=== PATIENT | female | born 1960 | race Caucasian/White ===

== ENCOUNTER 2025-07-31 14:57 | Outpatient (CLI) | payer MEDICARE, MEDICAID, SELFPAY ==
--- NOTE | ~2025-07-31 | CT_ITS ---
CT lung screening INDICATION: Tobacco use. Screening COMPARISON: None. TECHNIQUE: CT examination of the entire thorax without contrast was performed using low dose technique. Thin section axial, sagittal and coronal images were included to increase sensitivity for small lung nodules. FINDINGS: PULMONARY NODULES: No suspicious noncalcified pulmonary nodule. OTHER PULMONARY FINDINGS: No significant nonnodular pleural or parenchymal abnormality is noted. No emphysematous changes are present. Enlarged distal paraesophageal lymph node measures 1.5 x 0.9 cm. There is a small hiatal hernia.. Normal heart size. UPPER ABDOMEN AND PERIPHERAL SOFT TISSUE: Limited views of the upper abdomen and peripheral soft tissue demonstrated no abnormalities. OSSEOUS STRUCTURES: Bone window shows no aggressive blastic or lytic lesions. IMPRESSION: 1. Lung-RADS category 1: No nodules or definitely benign nodules. Recommendations: 1 or 2: Annual screening with low-dose CT in 12 months. 2. No emphysematous changes are present. 3. Enlarged paraesophageal lymph node. Metastases cannot be excluded. Clinical correlation is recommended. All CT scans at this facility are performed using low dose modulation techniques as appropriate to perform exam including the following: automated exposure control; use of iterative reconstruction technique; adjustment of the mA and/or kV according to patient size (this includes techniques or standardized protocols for targeted exams where dose is matched to indication/reason for exam). Reviewed, dictated and finalized at location S. EY ASSOCIATE IMPRESSION: 1. Lung-RADS category 1: No nodules or definitely benign nodules. Recommendations: 1 or 2: Annual screening with low-dose CT in 12 months. 2. No emphysematous changes are present. 3. Enlarged paraesophageal lymph node. Metastases cannot be excluded. Clinical correlation is recommended. All CT scans at this facility are performed using low dose modulation techniqu es as appropriate to perform exam including the following: automated exposure c ontrol; use of iterative reconstruction technique; adjustment of the mA and/or kV according to patient size (this includes techniques or standardized protocol s for targeted exams where dose is matched to indication/reason for exam).
--- OUTSIDE RECORDS SUMMARY | 2025-07-31 15:07 | XMS_ITS | Data Portability ---
Author Organization [facility] Address [address] [place] [address] Care Team Providers Care Patient Registration Representative Name Role Phone MIRTA HAYWARD Nutrition Instructor JOSEPH MCCRAY Nutrition Instructor Assessment Encounter Date Assessment Date Assessment LastModified by Organization Details LastModified Time 07/09/2025 07/09/[address] overdue, last medication refill oajao Not available 07/09/2025 13:41:31 Plan of Treatment Reminders Order Date Submit Date Provider Last Modified By Organization Details Last Modified Time Details Appointments ANY 15 2024 10:30A M Unassigned Not available Not available Not available ANY 15 2025 11:30A M Toan Durbin MD Not available Not available Not available Lab CBC 2024 [facility], [address], [place], [address], 07/10/2025 13:13:17 CMP, serum or plasm a 2024 025 [facility], [address], [place], [address], 07/10/2025 13:13:15 urina lysis macro (dips tick) panel , urine 2024 025 [facility], [address], [place], [address], 07/10/2025 13:13:16 nonin vasiv e color ectal cance r DNA + occul t blood scree jamee, QL, stool 2024 [facility], [address], [address], [place], [address], 07/31/2025 14:27:12 HbA1c (hemo globi n A1c), blood 2024 [facility], [address], [place], [address], 07/10/2025 13:13:16 lipid panel , serum 2024 [facility], [address], [place], [address], 07/10/2025 13:13:14 micro album in/cr eatin ine, mass ratio , urine 2024 [facility], [address], [place], [address], 07/10/2025 13:13:13 urina lysis , dipst ick 2023 024 [facility], [address], [place], [address], 11/29/2024 09:55:36 CBC w/ auto diff 2023 024 [facility], [address], [place], [address], 11/29/2024 09:55:37 CMP, serum or plasm a 2023 [facility], [address], [place], [address], 11/29/2024 09:55:37 vitam in D, 25-hy droxy , total , serum 2023 024 [facility], [address], [place], [address], 11/29/2024 09:55:36 HbA1c (hemo globi n A1c), blood 2023 [facility]24 [facility], [address], [place], [address], 11/29/2024 09:55:36 lipid panel , serum 2023 024 [facility], [address], [place], [address], 11/29/2024 09:55:36 micro album in/cr eatin ine, mass ratio , urine 2023 [facility], [address], [place], [address], 11/29/2024 09:55:36 basic metab olic 1998 panel , serum or plasm a 2021 [facility], [address], [place], [address], 07/19/2023 17:57:03 CBC 2021 022 [facility], [address], [place], [address], 07/19/2023 17:57:03 TSH, ultra -sens itive , serum 2021 [facility], [address], [address], [place], [address], 07/19/2023 17:57:03 urina lysis , dipst ick 2021 [facility], [address], [address], [place], [address], 07/19/2023 17:57:03 nonin vasiv e color ectal cance r DNA + occul t blood mikhail mancuso, QL, stool 2021 [facility], [address], [address], [place], [address], 09/06/2023 08:59:39 lipid panel , serum 2021 [facility], [address], [place], [address], 07/19/2023 17:57:02 Referral ortho pedic surge on refer ral 2024 025 [facility], [address], [place], [address], 07/23/2025 04:30:[address] refer ral 2024 025 [facility] (Ob), [address] [place], [address], 07/14/2025 15:20:57 diabe tic ophth almol ogy refer ral 2024 025 [facility], [address] , [place], [address], 07/09/2025 15:19:30 diabe tic ophth almol ogy refer ral [facility]23 [facility] [address] , [place], [address], 01/10/2025 18:52:17 Procedures None recor ded. Surgeries None recor ded. Imaging MAMMO , mikhail mancuso, digit al, bilat eral [address] [facility] ([facility]), [address] [place], [address], 07/09/2025 13:25:06 XR, knee - OA of both knees 2024 025 [facility] (Imaging), [address], [place], [address], 07/09/2025 13:50:06 LDCT, chest , for lung cance r scree jamee - Share d decis on stephen stewart was done 2024 [facility] (Imaging), [address], [place], [address], 07/29/2025 14:35:29 MAMMO , scree jamee, digit al, bilat eral [address] [facility] ([facility]), [address] [place], [address], 10/17/2024 13:47:47 DEXA 2023 024 [facility] ([facility]), [address] [place], [address], 05/17/2024 12:12:48 LDCT, chest , for lung cance r scree jamee 2023 024 [facility] ([facility]), [address] [place], [address], 05/24/2024 17:57:02 LDCT, chest , for lung cance r scree jamee - Discu ssed 2021 022 [facility] ([facility]), [address] [place], [address], 09/30/2022 11:58:56 MAMMO , scree jamee, bilat eral 2021 022 [facility] ([facility]), [address] [place], [address], 01/22/2023 13:03:20 Medication Orders atorv astat in 10 mg table t 2024 [facility], [address] [place] [address], [address], 07/09/2025 13:25:05 atorv astat in 10 mg table t 2021 [facility], [address] [place] [address], [address], 09/06/2022 12:43:36 lisin opril 20 mg-hy droch lorot hiazi de 25 mg table t 2021 [facility], [address] [place] [address], [address], 09/06/2022 12:43:39 Patient TargetsNo targets recorded. Patient Instructions Encounter Date Encounter Id Patient Instructions Last Modified By Organization Details Last Modified Time 09/06/2022 [id number] knee arthritis: care instructions oajao Not available 09/06/2022 12:20:58 Quitting Tobacco : Care Instructions oajao Not available 09/06/2022 12:24:20 A healthy lifestyle: care instructions oajao Not available 09/06/2022 12:14:38 leg and ankle edema: care instructions oajao Not available 09/06/2022 12:28:08 sleep apnea: car e instructions oajao Not available 09/06/2022 12:14:10 learning about breast cancer screening oajao Not available 09/06/2022 12:27:05 type 2 diabetes: care instructions oajao Not available 09/06/2022 12:15:34 body mass index: care instructions oajao Not available 09/06/2022 12:14:32 learning about healthy weight oajao Not available 09/06/2022 12:14:32 Labs (old and ne w orders) [facility] LDCT [facility] [place] Tobacco Quitline Follow up in 5 months and PRN oajao Not available 09/06/2022 12:26:10 03/24/2023 [id number] Labs as previous ly ordered Note from the [employer] as previously ordered Stop smoking [employer] for Pap Follow up in 6 months oajao Not available 03/24/2023 09:31:45 03/13/2024 [id number] mammogram: about this test oajao Not available 03/13/2024 13:08:51 Quitting Tobacco : Care Instructions oajao Not available 03/13/2024 13:12:02 A healthy lifestyle: care instructions oajao Not available 03/13/2024 13:50:36 learning about healthy weight oajao Not available 03/13/2024 13:50:29 body mass index: care instructions oajao Not available 03/13/2024 13:50:29 learning about healthy weight oajao Not available 03/13/2024 13:50:29 Labs LDCT [facility] as ordered DEXA Stop smoking e cig Follow up in 5 months and PRN oajao Not available 03/13/2024 13:57:55 12/24/2024 [id number] MMG as previousl y ordered Stop smoking [employer] OTC [employer] Schedule a routine visit in 6 weeks oajao Not available 12/24/2024 14:56:05 07/09/2025 [id number] mammogram: about this test oajao Not available 07/09/2025 13:25:06 high blood pressure: care instructions oajao Not available 07/09/2025 13:42:08 learning about h igh blood pressure oajao Not available 07/09/2025 13:42:08 Labs MMG Xray LD CT [employer] Orthopedics Follow up in 4 months oajao Not available 07/09/2025 13:23:46 Reason for Referral Diabetic Ophthalmology Refer ral for Type 2 diabetes mellitus without complication Referring Physician: Toan Durbin, Internal Medicine, Encounter Date: 03/13/2024 Power Lineman Referral for Sc reening for malignant neoplasm of cervix Referring Physician: Toan Durbin, Internal Medicine, Encounter Date: 07/09/2025 Diabetic Ophthalmology Refer ral for Type 2 diabetes mellitus without complication Referring Physician: Toan Durbin Internal Medicine, Encounter Date: 07/09/2025 Orthopedic Surgeon Referral for Primary gonarthrosis, bilateral OA of the knees Referring Physician: Toan Durbin, Internal Medicine, Encounter Date: 07/09/2025 Results Created Date Observation Date Name Description Value Unit Range Abnormal Flag Note LastModifiedBy Organization Detail LastModifiedTime 09/06/2009/06/2023 COLOG UARD cologuard result CANCEL LED - ORDER D not applic able Not Available [facility] [address], [place], [address], 09/06/2023 08:59:39 07/09/2007/10/2025 ALBUM IN/CR EAT RATIO , RANDO M UR creatinine, urine 199.1 mg/dL notest ab. Not Available [facility] ([facility]) [address], [place], [address], 07/10/2025 13:13:13 07/09/2007/10/2025 ALBUM IN/CR EAT RATIO , RANDO M UR albumin, urine 14.3 ug/mL notest ab. Not Available [facility] ([facility]) [address], [place], [address], 07/10/2025 13:13:13 07/09/2007/10/2025 ALBUM IN/CR EAT RATIO , RANDO M UR alb/creat ratio 7 mg/g_ creat 0-29 Trini l: 0 - 29 Moder ately incre ased: 30 - 300 Sever liz incre ased: >300 Not Available [facility] ([facility]) [address], [place], [address], 07/10/2025 13:13:13 07/09/2007/10/2025 LIPID PANEL cholesterol, total 155 mg/dL 100-19 9 Not Available [facility] ([facility]) [address] [place], [address], 07/10/2025 13:13:14 07/09/20 07/10/2025 LIPID PANEL triglyceride s 154 mg/dL 0-149 above high normal Not Available [facility] ([facility]) [address] [place], [address], 07/10/2025 13:13:14 07/09/20 25 07/10/2025 LIPID PANEL HDL cholesterol 39 mg/dL >39 below low normal Not Available [facility] ([facility]) [address], [place], [address], 07/10/2025 13:13:14 07/09/20 25 07/10/2025 LIPID PANEL VLDL cholesterol danielle 27 mg/dL 5-40 Not Available [facility] ([facility]) [address] [place], [address], 07/10/2025 13:13:14 07/09/20 25 07/10/2025 LIPID PANEL LDL chol calc ([facility]) 89 mg/dL 0-99 Not Available [facility] ([facility]) [address] [place], [address], 07/10/2025 13:13:14 07/09/20 25 07/10/2025 MICRO SCOPI C EXAMI NATIO N WBC 11-30 /hpf 0-5 abnormal Not Available [facility] ([facility]) [address] [place], [address], 07/10/2025 13:13:14 07/09/2007/10/2025 MICRO SCOPI C EXAMI NATIO N RBC 3-10 /hpf 0-2 abnormal Not Available [facility] ([facility]) [address] [place], [address], 07/10/2025 13:13:14 07/09/20 25 07/10/2025 MICRO SCOPI C EXAMI NATIO N epithelial cells (non renal) 0-10 /hpf 0-10 Not Available [facility] ([facility]) [address] [place], [address], 07/10/2025 13:13:14 07/09/2007/10/2025 MICRO SCOPI C EXAMI NATIO N casts None seen /lpf nonese en Not Available [facility] ([facility]) [address], [place], [address], 07/10/2025 13:13:14 07/09/2007/10/2025 MICRO SCOPI C EXAMI NATIO N bacteria None seen nonese en/few Not Available [facility] ([facility]) [address], [place], [address], 07/10/2025 13:13:14 07/09/2007/10/2025 CMP14 +EGFR glucose 122 mg/dL 70-99 above high normal Not Available [facility] ([facility]) [address], [place], [address], 07/10/2025 13:13:15 07/09/2007/10/2025 CMP14 +EGFR BUN 12 mg/dL 8-27 Not Available [facility] ([facility]) [address], [place], [address], 07/10/2025 13:13:15 07/09/2007/10/2025 CMP14 +EGFR creatinine 0.76 mg/dL 0.57-1 .00 Not Available [facility] ([facility]) [address], [place], [address], 07/10/2025 13:13:15 07/09/2007/10/2025 CMP14 +EGFR eGFR 86 mL/mi n/1.7 3 >59 Not Available [facility] ([facility]) [address], [place], [address], 07/10/2025 13:13:15 07/09/2007/10/2025 CMP14 +EGFR BUN/creatini ne ratio 16 12-28 Not Available [facility] ([facility]) [address], [place], [address], 07/10/2025 13:13:15 07/09/2007/10/2025 CMP14 +EGFR sodium 140 mmol/ L 134-14 4 Not Available [facility] ([facility]) [address], [place], [address], 07/10/2025 13:13:15 07/09/2007/10/2025 CMP14 +EGFR potassium 3.8 mmol/ L 3.5-5. 2 Not Available [facility] ([facility]) [address], [place], [address], 07/10/2025 13:13:15 07/09/2007/10/2025 CMP14 +EGFR chloride 102 mmol/ L 96-106 Not Available [facility] ([facility]) [address], [place], [address], 07/10/2025 13:13:15 07/09/2007/10/2025 CMP14 +EGFR carbon dioxide, total 25 mmol/ L 20-29 Not Available [facility] ([facility]) [address], [place], [address], 07/10/2025 13:13:15 07/09/2007/10/2025 CMP14 +EGFR calcium 9.2 mg/dL 8.7-10 .3 Not Available [facility] ([facility]) [address] [place], [address], 07/10/2025 13:13:15 07/09/2007/10/2025 CMP14 +EGFR protein, total 7.2 g/dL 6.0-8. 5 Not Available [facility] ([facility]) [address] [facility] [address], [place], [address], 07/10/2025 13:13:15 07/09/2007/10/2025 CMP14 +EGFR albumin 3.9 g/dL 3.9-4. 9 Not Available [facility] ([facility]) [address] [place], [address], 07/10/2025 13:13:15 07/09/2007/10/2025 CMP14 +EGFR globulin, total 3.3 g/dL 1.5-4. 5 Not Available [facility] ([facility]) [address] [place], [address], 07/10/2025 13:13:15 07/09/2007/10/2025 CMP14 +EGFR bilirubin, total 0.7 mg/dL 0.0-1. 2 Not Available [facility] ([facility]) [address] [place], [address], 07/10/2025 13:13:15 07/09/2007/10/2025 CMP14 +EGFR alkaline phosphatase 95 IU/L 49-135 Not Available [facility]) [address] [place], [address], 07/10/2025 13:13:15 07/09/2007/10/2025 CMP14 +EGFR AST (SGOT) 24 IU/L 0-40 Not Available [facility] ([facility]) [address] [place], [address], 07/10/2025 13:13:15 07/09/2007/10/2025 CMP14 +EGFR ALT (SGPT) 25 IU/L 0-32 Not Available [facility] ([facility]) [address] [place], [address], 07/10/2025 13:13:15 07/09/2007/10/2025 HEMOG LOBIN A1C hemoglobin A1C 6.4 % 4.8-5. 6 above high normal Predi abete s: 5.7 - 6.4 Diabe keo: >6.4 Glyce omer contr ol for adult s with diabe keo: <7.0 Not Available [facility] ([facility]) [address] [facility] [address], [place], [address], 07/10/2025 13:13:15 07/09/2007/10/2025 URINA LYSIS , ROUTI NE specific gravity 1.023 1.005- 1.030 Not Available [facility] ([facility]) [address] [facility] [address], [place], [address], 07/10/2025 13:13:16 07/09/2007/10/2025 URINA LYSIS , ROUTI NE pH 5.5 5.0-7. 5 Not Available [facility] ([facility]) [address] [facility] [address], [place], [address], 07/10/2025 13:13:16 07/09/2007/10/2025 URINA LYSIS , ROUTI NE urine-color YELLOW yellow Not Available [facility] ([facility]) [address] [place], [address], 07/10/2025 13:13:16 07/09/2007/10/2025 URINA LYSIS , ROUTI NE appearance CLEAR clear Not Available [facility] ([facility]) [address] [facility] [address], [place], [address], 07/10/2025 13:13:16 07/09/2007/10/2025 URINA LYSIS , ROUTI NE WBC esterase 1+ negati ve abnormal Not Available [facility] ([facility]) [address] [facility] [address], [place], [address], 07/10/2025 13:13:16 07/09/2007/10/2025 URINA LYSIS , ROUTI NE protein TRACE negati ve/tra ce Not Available [facility] ([facility]) [address] [place], [address], 07/10/2025 13:13:16 07/09/2007/10/2025 URINA LYSIS , ROUTI NE glucose NEGATI VE negati ve Not Available [facility] ([facility]) [address] [place], [address], 07/10/2025 13:13:16 07/09/2007/10/2025 URINA LYSIS , ROUTI NE ketones NEGATI VE negati ve Not Available [facility] ([facility]) [address] [place], [address], 07/10/2025 13:13:16 07/09/2007/10/2025 URINA LYSIS , ROUTI NE occult blood 1+ negati ve abnormal Not Available [facility] ([facility]) [address] [place], [address], 07/10/2025 13:13:16 07/09/2007/10/2025 URINA LYSIS , ROUTI NE bilirubin NEGATI VE negati ve Not Available [facility] ([facility]) [address] [place], [address], 07/10/2025 13:13:16 07/09/2007/10/2025 URINA LYSIS , ROUTI NE urobilinogen ,semi-qn 0.2 mg/dL 0.2-1. 0 Not Available [facility] ([facility]) [address] [place], [address], 07/10/2025 13:13:16 07/09/2007/10/2025 URINA LYSIS , ROUTI NE nitrite, urine NEGATI VE negati ve Not Available [facility] ([facility]) [address] [place], [address], 07/10/2025 13:13:16 07/09/2007/10/2025 URINA LYSIS , ROUTI NE microscopic examination SEE BELOW: Micro scopi c was indic ated and was perfo rmed. Not Available [facility] ([facility]) [address] [place], [address], 07/10/2025 13:13:16 07/09/2007/10/2025 CBC, PLATE LET, NO DIFFE RENTI AL WBC 9.7 x10e3 /uL 3.4-10 .8 Not Available [facility] ([facility]) [address] [facility] [address], [place], [address], 07/10/2025 13:13:17 07/09/2007/10/2025 CBC, PLATE LET, NO DIFFE RENTI AL RBC 4.59 x10e6 /uL 3.77-5 .28 Not Available [facility] ([facility]) [address] [facility] [address], [place], [address], 07/10/2025 13:13:17 07/09/2007/10/2025 CBC, PLATE LET, NO DIFFE RENTI AL hemoglobin 12.9 g/dL 11.1-1 5.9 Not Available [facility] ([facility]) [address] [facility] [address], [place], [address], 07/10/2025 13:13:17 07/09/2007/10/2025 CBC, PLATE LET, NO DIFFE RENTI AL hematocrit 39.6 % 34.0-4 6.6 Not Available [facility] ([facility]) [address] [facility] [address], [place], [address], 07/10/2025 13:13:17 07/09/2007/10/2025 CBC, PLATE LET, NO DIFFE RENTI AL MCV 86 fL 79-97 Not Available [facility] ([facility]) [address] [facility] [address], [place], [address], 07/10/2025 13:13:17 07/09/2007/10/2025 CBC, PLATE LET, NO DIFFE RENTI AL MCH 28.1 pg 26.6-3 3.0 Not Available [facility] ([facility]) [address] [facility] [address], [place], [address], 07/10/2025 13:13:17 07/09/2007/10/2025 CBC, PLATE LET, NO DIFFE RENTI AL MCHC 32.6 g/dL 31.5-3 5.7 Not Available [facility] ([facility]) [address] [facility] [address] [facility] [address], [place], [address], 07/10/2025 13:13:17 07/09/2007/10/2025 CBC, PLATE LET, NO DIFFE RENTI AL RDW 14.4 % 11.7-1 5.4 Not Available [facility] ([facility]) [address] [facility] [address] [facility] [address], [place], [address], 07/10/2025 13:13:17 07/09/2007/10/2025 CBC, PLATE LET, NO DIFFE RENTI AL platelets 237 x10e3 /uL 150-45 0 Not Available [facility] ([facility]) [address] [facility] [address], [place], [address], 07/10/2025 13:13:17 09/30/19 23 09/30/2022 LDCT, chest , for lung cance r mikhail mancuso No observ ation record ed. [facility] [address] [place], [address], 03/24/2023 09:25:35 01/23/20 23 01/20/2023 MAMMO mikhailg, bilat eral No observ ation record ed. [facility] [address] [place], [address], 03/24/2023 09:25:35 01/24/20 23 01/20/2023 MAMMO , mikhail palaciog, bilat eral No observ ation record ed. [facility] Rivas Dillon MD [address] [place], [address], 03/24/2023 09:25:35 05/24/20 24 05/24/2024 LDCT, chest , for lung radha mancuso No observ ation record ed. [facility] [address], [place], [address], 12/24/2024 14:40:31 Result Notes None recorded. 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 Not Available [facility] 3 08:20:48 Benign essential hypertension 6931623 Active 2017 Toan Durbin MD Attn: Accounting ,[address] [place], [address] , [facility] 5 13:42:06 Pain in right knee Active 2017 Not Available [facility] 3 08:20:48 Influenza vaccination declined 922656063 Active 2017 [facility] Available [facility] 3 08:20:48 Nicotine dependence 12958665 Active 2017 Not Available [facility] 3 08:20:49 Impaired fasting glycemia 822994122 Active 2017 Not Available [facility] 3 08:20:48 Thoracic spondylosis 901345393 Active 2017 Not Available [facility] 3 08:20:48 Kyphosis deformity of spine 285675549 Active 2017 Not Available [facility] 3 08:20:49 Metabolic dysfunction- associated steatohepati tis 449801087 Active 2017 Not Available [facility] 3 08:20:49 Gallstone 627129316 Active 2018 Not Available [facility] 3 08:20:48 Bronchitis 21092589 Active 2018 Not Available [facility] 3 08:20:48 Type 2 diabetes mellitus without complication 400739717 Active 2020 Not Available [facility] 3 08:20:48 Pulmonary arterial hypertension 78801370 Active 2021 Not Available [facility] 3 08:20:48 Obstructive sleep apnea syndrome 07633880 Active 2021 Not Available [facility] 3 08:20:49 SARS-CoV-2 antigen vaccine declined 9385973255 Active 2021 Not Available [facility] 3 08:20:48 Problem Notes None recorded. Procedures Surgical History Date Name Laterality Status Provider Name and Address Organization Details Recorded Time 10/04/19 20 Date of Last Pap Smear completed Esme Velasco MA [facility] 10/04/2019 13:13:08 05/19/20 19 Date of Last Mammogram completed VANDANA Sullivan [facility] 10/04/2019 13:12:47 12/25/19 Cholecystectomy completed Theresa Figueroa MA [facility] 01/09/2019 12:30:11 Tubal Ligation completed Theresa Figueroa MA [facility] 05/02/2018 14:35:33 Imaging Results None recorded. Procedure Notes None recorded. Medical Equipment None Reported. Allergies Allergen ID Allergen Name Allergen Category Reaction Reaction Severity Criticality Documentation Date Start Date Code Code System Note Provider Name and Address Organization Details Recorded Time 856476 Product containin g penicilli n (product) medicatio n other Not available Not available 05/02/2018 62160 8001 SNOMED VANDANA Marie [facility] 8 14:39:46 979164 codeine medicatio n Not available Not available Not available 05/02/2018 2670 RxNorm VANDANA Marie [facility] 8 14:39:51 Medications Name Sig Start Date Stop Date Status Note LastModified by Organization Details LastModified Time celecoxib 200 mg capsule TAKE 1 CAPSULE BY MOUTH ONCE DAILY active Not Available Not Available No t Available metformin 500 mg tablet TAKE 1 TABLET BY MOUTH TWICE DAILY 03/13 completed Not Available Not Available Not Available prednisone 10 mg tablet 01/09 completed Not Available Not Available Not Available nicotine 14 mg/24 hr daily transderma l patch Apply 1 patch every day by transder mal route as directed for 14 days. 02/02 completed Not Available Not Available Not Available atorvastat in 10 mg tablet TAKE 1 TABLET BY MOUTH ONCE DAILY DIRECTED FOR 90 DAYS 2024 active Not Available Not Available Not Avai lable azithromyc in 250 mg tablet TAKE 2 TABLETS (500 MG) BY ORAL ROUTE ONCE DAILY FOR 1 DAY THEN 1 TABLET (250 MG) BY ORAL ROUTE ONCE DAILY FOR 4 DAYS 10/04 completed Not Available Not Available Not Available fluconazol e 150 mg tablet Take 1 tablet every 72 hours by oral route as directed for 6 days. 2024 active Not Available Not Available Not Avai lable meloxicam 15 mg tablet 09/05 completed Not Available Not Available Not Available oxycodone- acetaminop hen 5 mg-325 mg tablet 01/09 completed Not Available Not Available Not Available nicotine (polacrile x) 4 mg gum Chew 1 piece of gum every 3-4 hours by oral route as needed for 30 days. 07/21 completed Not Available Not Available Not Available benzonatat e 100 mg capsule Take 1 capsule 3 times a day by oral route as directed for 7 days. 08/02 completed Not Available Not Available Not Available nystatin 100,000 unit/gram topical cream APPLY TO THE AFFECTED AREA(S) BY TOPICAL ROUTE 2 TIMES PER DAY 03/24 completed Not Available Not Available Not Available nicotine 21 mg/24 hr daily transderma l patch Apply 1 patch every day by transder mal route as directed for 42 days. 02/02 completed Pt states she had bad dreams Not Available Not Available Not Available lisinopril 20 mg-hydroch lorothiazi de 25 mg tablet TAKE 1 TABLET BY MOUTH ONCE DAILY active Not Available Not Available No t Available diclofenac sodium 75 mg tablet,del ayed release 09/05 completed Not Available Not Available Not Available levofloxac in 750 mg tablet 09/05 completed Not Available Not Available Not Available nicotine 7 mg/24 hr daily transderma l patch Apply 1 patch every day by transder mal route as directed for 14 days. 02/02 completed Not Available Not Available Not Available Ventolin HFA 90 mcg/actuat ion aerosol inhaler Inhale 2 puffs every 6-8 hours by inhalati on route as needed for 30 days. 10/04 completed Not Available Not Available Not Available Bactrim DS 800 mg-160 mg tablet Take 1 tablet every 12 hours by oral route as directed for 3 days. 2024 active Not Available Not Available Not Avai lable Low Dose Aspirin 81 mg tablet,del ayed release Take 1 tablet every day by oral route. 11/16 completed Not Available Not Available Not Available multivitam in active Not Available Not Available Not Available vareniclin e tartrate 1 mg tablet TAKE 1 TABLET BY MOUTH ONCE DAILY DIRECTED 03/24 completed Not Available Not Available Not Available Calcium 600 + D(3) 600 mg-10 mcg (400 unit) tablet Take 1 tablet twice a day by oral route. 06/16 completed Not Available Not Available Not Available melatonin 10 mg tablet Take 1 tablet every day by oral route as needed for 30 days. 12/07 completed Not Available Not Available Not Available Jardiance 10 mg tablet TAKE 1 TABLET BY MOUTH ONCE DAILY active Not Available Not Available No t Available Robafen DM Cough-Ches t Congestion 10 mg-100 mg/5 mL oral syrup Take 10 mL every 4 hours by oral route as directed for 5 days. 10/04 completed Not Available Not Available Not Available OneTouch Delica Plus Lancet 33 gauge USE TO TEST BLOOD SUGAR THREE TIMES WEEKLY active Not Available Not Available No t Available BinaxNOW COVID-19 Ag Self Test kit Use as Directed on the Package 09/06 completed Not Available Not Available Not Available Paxlovid 300 mg (150 mg x 2)-100 mg tablets in a dose pack TAKE 2-150 MG TABS OF NIRMATRE LVIR AND 1- 100 MG TAB OF RITONAVI R DIRECTED FOR 5 DAYS 08/02 completed Not Available Not Available Not Available Contour Plus Test Strip USE 1 STRIP TO CHECK GLUCOSE ONCE DAILY NEEDED FOR 100 DAYS active Not Available Not Available No t Available Contour Plus Blue Meter USE TO CHECK GLUCOSE ONCE DAILY active Not Available Not Available No t Available Vitals Date Recorded Body height Body mass index (BMI) Body weight Body temperature Heart rate Oxygen saturation Oxygen saturation in Arterial blood by Pulse oximetry Systolic And Diastolic Provider Name and Address Organization Details Last Updated DateTime 5 167.64 cm 36.7 kg/m2 723243. 9 g 97.5 [degF] 72 /min 97 % 97 % 124/68 mm[Hg] Maliha Morel [facility] 5 14:37:39 Date Recorded Respiratory rate Provider Name a nd Address Organization Details Last Updated DateTime 03/13/2024 12 /min Toan Durbin MD Attn: Accounting,[address] [facility], [place], [address], [facility] 03/13/2024 13:07:51 Date Recorded Body height Body mass index (BMI) Body weight Heart rate Oxygen saturation Oxygen saturation in Arterial blood by Pulse oximetry Systolic And Diastolic Provider Name and Address Organization Details Last Updated DateTime 4 167.64 cm 35.8 kg/m2 532601. 51 g 79 /min 97 % 97 % 120/70 mm[Hg] Esme Velasco MA [facility] 4 12:29:22 Date Recorded Body height Body mass index (BMI) Body weight Heart rate Oxygen saturation Oxygen saturation in Arterial blood by Pulse oximetry Respiratory rate Systolic And Diastolic Provider Name and Address Organization Details Last Updated DateTime 3 167.64 cm 34.5 kg/m2 30209.7 7 g 78 /min 96 % 96 % 14 /min 114/70 mm[Hg] Theresa Figueroa MA [facility] 3 09:23:45 Date Recorded Body height Body mass index (BMI) Body weight Heart rate Oxygen saturation Oxygen saturation in Arterial blood by Pulse oximetry Respiratory rate Body temperature Systolic And Diastolic Provider Name and Address Organization Details Last Updated DateTime 5 167.64 cm 35.8 kg/m2 051926. 43 g 84 /min 97 % 97 % 14 /min 97.8 [degF] 130/74 mm[Hg] Theresa Figueroa MA [facility] 5 12:57:33 Date Recorded Body height Body mass index (BMI) Body weight Respiratory rate Heart rate Oxygen saturation Oxygen saturation in Arterial blood by Pulse oximetry Systolic And Diastolic Provider Name and Address Organization Details Last Updated DateTime 2 167.64 cm 35.3 kg/m2 56344.5 7 g 16 /min 86 /min 98 % 98 % 124/80 mm[Hg] Theresa Figueroa MA [facility] 2 12:05:07 Social History Question Answer Notes LastModified by Organizat ion Details LastModified Time Tobacco Smoking Status Current Every Day Smoker 1 PPD for ~ 47 years Stopped 07/2023 Started again 09/2024day 07/09/2025 Toan Durbin MD Attn: [facility], [place], [address], [facility] - [facility] 07/09/2025 13:14:16 Do You Have An Advance Directive? No Information not available 05/02/2018 What Is Your Level Of Caffeine Consumption? Moderate Information not available 05/02/2018 How Much Tobacco Do You Chew? None Information not available 05/02/2018 What Type Of Diet Are You Following? REGULAR Information not available 05/02/2018 Are There Any Guns Present In Your Home? No Information not available 05/02/2018 Hard Of Hearing Or Deaf In One Or Both Ears? No Information not available 05/02/2018 Legally Blind In One Or Both Eyes? No Information not available 05/02/2018 Marital Status Single Informatio n not available 05/02/2018 What Was The Date Of Your Most Recent Tobacco Screening? 07/09/2025 Information not available 07/09/2025 What Is Your Current Pack Years? 30ormorepacky ears Information not available 06/16/2021 Performs Monthly Self-breast Exam? No Information not available 05/02/2018 What Is Your Relationship Status? Information not available 08/02/2022 Seat Belts Used Routinely Yes Information not available 05/02/2018 Are You Sexually Active? No Information not available 08/02/2022 Smoke Alarm In Home Yes Information not available 05/02/2018 Do You Have Smoke And Carbon Monoxide Detectors In Your Home? Yes Information not available 08/02/2022 At What Age Did You Start Smoking Tobacco? 12 Information not available 06/16/2021 Are You Passively Exposed To Smoke? No Information not available 08/02/2022 How Much Tobacco Do You Smoke? 0.25 PPD [email or web address] Information not available 12/24/2024 Do You Use Sunscreen Routinely? No Information not available 05/02/2018 Has Tobacco Cessation Counseling Been Provided? Yes Information not available 07/21/2021 On What Date Was Tobacco Cessation Counseling Provided? 07/09/2025 Information not available 07/09/2025 How Many Years Have You Smoked Tobacco? 48 Information not available 06/16/2021 How Many Years Have You Used E-cigarettes Or Vape? 1 Information not available 09/06/2022 Sex: Unknown Functional Status Question Answer Note LastModified by Organizat ion Details LastModified Time Do you use any illicit or recreational drugs? No Information not available 09/06/2022 Do you or have you ever used any other forms of tobacco or nicotine? No Information not available 06/16/2021 What is your level of alcohol consumption? None Information not available 05/02/2018 Do you or have you ever used smokeless tobacco? Never used smokeless tobacco Information not available 07/11/2019 What is your occupation? unemployed Information not available 05/02/2018 Do you or have you ever used e-cigarettes or vape? Former user of electronic cigarettes Information not available 07/09/2025 What is your exercise level? None Information not available 05/02/2018 Mental Status None recorded. Family History Relationship Description Onset Age of this Age Resolved Age Notes LastModified by Organization Details LastModified Time Father Myocardial infarction [email or web address] Not available 05/02 14:36:03 Mother Diabetes mellitus [email or web address] Not available 2017 14:36:14 Sister Hypertensive disorder [email or web address] Not available 2017 14:36:31 Medical History Condition Response Coronary Artery Disease N Other N High Blood Pressure Y Atrial Fibrillation N Kidney or Bladder Problems N Thyroid Problems N GI Problems N Depression N COPD N Blood Clots N Skin Problems N Anemia N Heart Attack (MS) N Anxiety Disorder N Diabetes Y Muscle, Joint, or Bone Problems N Seizures/Epilepsy N Acid Reflux (GERD) N Cancer N Stroke N Asthma N Allergies N High Cholesterol N Hepatitis N Liver Disease N Headaches N Heart Failure N Osteoporosis N Gynecological History Statement/Question Response If Post Menopausal, Age at Menopause 56 Date of Last Mammogram 05/19/2019 Date of LMP 09/18/2009 Menses Monthly N STIs/STDs N Date of Last Pap Smear 10/04/2019 Current Control Method Tubal Ligat ion Obstetrics History GPAL:G 5 P 0 0 0 5 Type Value Living 5 Total 5 Immunizations Vaccine Type Date Status Note Provider Waldemar vargas and Address Organization Details Recorded Time pneumococcal polysaccharide PPV23 0 completed Theresa Figueroa [place] null, [place] - [facility] 11/05/2019 12:58:26 Tdap 1 completed Hermelinda Johnston [place], [place] [facility] 06/16/2021 13:04:05 COVID-19, mRNA, LNP-S, PF, 100 mcg/0.5mL dose or 50 mcg/0.25mL dose 1 completed Cat Zamorano [place], [place] [facility] 06/17/2021 13:47:46 COVID-19, mRNA, LNP-S, PF, 30 mcg/0.3 mL dose 1 completed Cat Zamorano [place], [place] [facility] 07/15/2021 14:04:33 Pneumococcal conjugate PCV20, polysaccharide EWI079 conjugate, adjuvant, PF 4 completed Toan Durbin MD Attn: Accounting,[address] [place], [address], [place] [facility] 03/13/2024 13:48:40 Past Encounters Encounter ID Performer Location Encounter Start Date Encounter Closed Date Diagnosis/Indication Diagnosis SNOMED-CT Code Diagnosis ICD10 Code Diagnosis IMO Codes Diagnosis Note [id number] Toan Durbin MD [facility] (Adult Med) [address] [place] [address] [phone] 0 05/02/2018 14:10:15 05/02/2018 15:18:05 General examination of patient 413916560 Z00.01 Pain in right knee 75984 24105 31120 M25.561 Benign ess ential hypertension 2799971 I10 Nicotine dependence 5629 4008 Z87.891 Pain in forearm 64344715 3 M79.632 Hand pain 73657603 M79.6 42 Immunization refused 275 967791 Z28.20 Tooth disorder 591765057 K08.9 Screening for malignant neoplasm of breast 629014557 Z12.31 Screening for malignant neoplasm of colon 903034688 Z12.11 Screening for malignant neoplasm of cervix 067013453 Z12.4 [id number] MD [facility] (Adult Med) [address] [place] [address] [phone] 0 06/13/2018 15:05:48 06/13/2018 16:13:29 Blood in urine 92723862 R31.9 Disorder o f lipid metabolism 334325431 E78.9 Screening for malignant neoplasm of cervix 937240047 Z12.4 Hypokalemia 39198828 E87 .6 Influenza vaccination declined 522779423 Z28.21 Nicotine dependence 5629 4008 Z87.891 She was prescribed an oral medication for smoking cessation by her cardiologi st, she read the side effects and refused to take it. Impaired f asting glycemia 212135151 R73.01 [id number] Toan Durbin MD [facility] (Adult Med) [address] [place] [address] [phone] 0 09/05/2018 11:10:14 09/05/2018 12:08:16 Thoracic spondylosis 538478726 M47.814 Kyphosis d eformity of spine 648196669 M40.209 Metabolic dysfunction-associate d steatohepatitis 464084662 K75.81 Hypokalemia 45980148 E87 .6 Pain in left knee 529469 3968 36273 M25.562 Influenza vaccination declined 985864006 Z28.21 Screening for malignant neoplasm of colon 612108243 Z12.11 Medial epicondylitis 532 70310 M77.02 [id number] Toan Durbin MD [facility] (Adult Med) [address] [place] [address] [phone] 0 11/13/2018 12:01:13 11/13/2018 12:47:59 Osteoarthritis of knee 780812985 M17.0 Disorder o f urinary bladder 60276909 N32.9 She has multiple gall stones and some are in the neck of the GB although she appears asymptomat ic. Nicotine dependence 5629 4008 Z87.891 Discussed Screening for malignant neoplasm of colon 470421101 Z12.11 That has to wait until I get my own place Screening for malignant neoplasm of cervix 713238466 Z12.4 Gallstone 476870019 K80. 71 [id number] MD [facility] (Adult Med) [address] [place] [address] [phone] 0 01/09/2019 12:09:41 01/10/2019 14:18:24 Colon cancer screening declined 1702230741 9109 Z53.20 Benign ess ential hypertension 0820904 I10 Screening for malignant neoplasm of breast 440832394 Z12.31 Cholesterol screening 27 0780469 Z13.220 Nicotine dependence 5629 4008 Z87.891 Discussed [id number] MD [facility] (Adult Med) [address] [place] [address] [phone] 0 07/11/2019 12:12:42 07/12/2019 08:30:40 Bronchitis 86033151 J40 Screening for malignant neoplasm of colon 486505881 Z12.11 That has to wait until I get my own place Screening for malignant neoplasm of cervix 460033642 Z12.4 Dyspnea 532255760 R06.00 Asthma vs COPD Influenza vaccination declined 800976253 Z28.21 Nicotine dependence 5629 4008 Z87.891 Discussed, her LDCT was negative Benign ess ential hypertension 4169525 I10 [id number] LELE OSBORN (PORT SURVEYOR) [address] [place] [address] [phone] 0 10/04/2019 12:20:49 10/04/2019 14:01:08 Gynecologic examination 88069451 Z01.419 Z11.51 Z12.4 Venereal d isease screening 968673414 Z11.3 Screening for osteoporosis 109021685 Z13.820 Postmenopa usal and heavy smoker - start earlier BMD screening. Smoker 67731530 F17.200 Cessation encouraged . Female uri nary stress incontinence 46887008 N39.3 Kegel exercises. Candidal intertrigo 2661 22367 B37.2 [id number] MD Judy [facility] (Adult Med) [address] [place] [address] [phone] 0 10/09/2019 12:01:27 10/09/2019 12:38:46 Nicotine dependence 37102026 Z87.891 Discussed Body mass index 30+ - obesity 358513274 Z68.37 Benign ess ential hypertension 5375224 I10 Influenza vaccination declined 058821393 Z28.21 Long-term drug therapy 063518085 Z79.899 Hyperlipid emia screening 937879731 Z13.303 [id number] MD Judy [facility] (Adult Med) [address] [place] [address] [phone] 0 11/05/2019 12:11:38 11/06/2019 09:16:09 Type 2 diabetes mellitus without complication 636472349 E11.9 Nutritioni stDiet control for nowWeight loss Administra tion of pneumococcal vaccine 41735288 Z23 [id number] Toan Durbin MD [facility] (Adult Med) [address] [place] [address] 0 02/03/2020 09:23:55 02/04/2020 11:37:04 Nicotine dependence 63080129 Z87.891 Discussed, failure of nicotine gum and patches.Radha vargas has refused Bupropion and Chantix Screening for malignant neoplasm of colon 225193526 Z12.11 She was encouraged to mail back back her COloguard Type 2 kaylah betes mellitus without complication 151503824 E11.9 Nutritioni stDiet control for nowWeight loss [id number] Toan Durbin MD [facility] (Adult Med) [address] [place] [address] [phone] 0 06/16/2021 11:49:13 06/16/2021 12:52:18 Nicotine dependence 23280270 Z87.891 Discussed, previous failure of nicotine gum and patches, she would like to try the gum again Screening for malignant neoplasm of colon 046463309 Z12.11 She was encouraged to mail in her Cologuard Type 2 kaylah betes mellitus without complication 576544974 E11.9 Diet control for nowWeight lossShe was once again made aware of her diagnosis Benign ess ential hypertension 1020807 I10 Postmenopa usal bleeding 01949916 N95.0 Influenza vaccination declined 074562399 Z28.21 Administra tion of diphtheria, pertussis, and tetanus vaccine 737154617 Z23 Administra tion of SARS-CoV-2 antigen vaccine 161698667 Z23 General ex amination of patient 611739043 Z00.01 Screening mammography of bilateral breasts 7121349544 50090 Z12.31 [id number] LELE AGUERO (Peds) [address] [place] [address] [phone] 0 06/17/2021 11:49:59 06/18/2021 11:47:52 Administration of SARS-CoV-2 antigen vaccine 385527037 Z23 [id number] LELE AGUERO (Peds) [address] [place] [address] [phone] 0 07/15/2021 11:50:38 07/16/2021 10:20:29 Administration of SARS-CoV-2 mRNA vaccine 6775684931 Z23 [id number] MD Judy [facility] (Adult Med) [address] [place] [address] [phone] 0 07/21/2021 11:47:05 07/21/2021 12:26:29 Leukocytosis 680152106 D72.829 Insomnia 590839826 G47.0 0 Sleep hygeineTri al of Melatonin Type 2 kaylah betes mellitus without complication 073113139 E11.9 Continue Diet control for now and weight lossMetfor min was discussed, she declined Benign ess ential hypertension 8253779 I10 Nicotine dependence 5629 4008 Z87.891 Discussed, previous failure of nicotine gum and patches, she would like to try the gum again but she cannot afford the $82:00.MS Tobacco Quitline for assistance in obtaining the Nicotine gum [id number] LELE AGUERO (Adult Med) [address] [place] [address] [phone] 0 09/16/2021 14:52:53 09/16/2021 20:33:10 Vaginal irritation 863533850 N89.8 Complainin g of vaginal pruritis x 1 week.The pruritis is located on the outside and the inside of the vagina, very bothersome to her. Also complainin g of white, thick vaginal discharge. Has had yeast infections before, states it feels very similar.- patient declined exam today, decided to swab herself with nuswab- urine sample came back normal- will start anti-funga l for what sounds like vulvovagin itis [id number] MD Judy [facility] (Adult Med) [address] [place] [address] [phone] 0 12/07/2021 12:14:30 12/07/2021 13:12:44 Pulmonary arterial hypertension 70505834 I27.21 [facility]ed on the [facility] opinion Type 2 kaylah betes mellitus without complication 975630840 E11.9 Continue Diet control for now and weight lossMetfor min was discussed, she declinedTh e need for a glucometer was discussed, we will check her labs Nicotine dependence 5629 4008 Z87.891 Discussed, she should stop smoking. Obstructiv e sleep apnea syndrome 75397927 G47.33 Immunization advised 310 122039 Z71.9 [id number] LELE OSBORN (PORT SURVEYOR) [address] [place] [address] [phone] 0 08/02/2022 08:58:13 08/10/2022 08:08:41 Atrophic vaginitis 68089264 N95.2 On PE, noted atrophic changes to vagina. Discussed that these changes can be contributi ng to pruritis and irritation . Discussed using over the counter vaginal moisturize rs. Will discuss further treatment options for topical estrogen therapy if symptoms persist. Nuswab obtained to r/o infection. Candidal vulvovaginitis 27381026 B37.31 Patient is experienci ng pruritis to vulva and vagina. On exam, there is significan t erythema to areas in contact with briefs and/or pads. Discussed the diagnosis of a yeast infection with a rash c/b moisture from pads. Encouraged vulvar hygeine and keeping the area as dry as possible. Rx nystatin topical and fluconazol e PO for fungal infection. Return in 1 month if not improving Mixed urin tamara incontinence 457961807 N39.46 Patient is experienci ng mixed urinary incontinen ce, she follows with urologist. She is requesting rx for pads to be sent. Encouraged follow up with urology provider. [id number] MD Judy [facility] (Adult Med) [address] [place] [address] [phone] 0 09/06/2022 11:54:11 09/07/2022 14:58:02 Obstructive sleep apnea syndrome 79312592 G47.33 Mild FALGUNI Influenza vaccination declined 845235449 Z28.21 Body mass index 30+ - obesity 782495718 Z68.37 Obesity 403568428 E66.9 Type 2 kaylah betes mellitus without complication 900509885 E11.9 Continue Diet control for now and weight lossMetfor min was previously discussed and she declinedLa bs Medication monitoring 39 6824814 Z51.81 Osteoarthr itis of knee 596229843 M17.0 Nicotine dependence 5629 4008 Z87.891 Discussed, she should stop smoking.Radha vargas has Chantix Screening for malignant neoplasm of colon 309065188 Z12.11 She was once again encouraged to mail in her Cologuard SARS-CoV-2 antigen vaccine declined 8193202751 Z28.21 Screening for malignant neoplasm of breast 346421169 Z12.31 Edema of l ower extremity 231082972 R60.0 Non pitting Benign ess ential hypertension 4352683 I10 [id number] MD Judy [facility] (Adult Med) [address] [place] [address] 57178-465 0 03/24/2023 09:01:30 03/27/2023 15:46:43 Benign essential hypertension 0801054 I10 Type 2 kaylah betes mellitus without complication 119507314 E11.9 Srikanth is now on Metformin which was prescribed by her cardiologi st See the 02/03/2023 message OV 08/19/2022 Continue Diet control for now and weight lossMetfor min was previously discussed and she declinedLa bs [id number] Toan [facility] [address] [place] [address] [phone] 0 03/13/2024 12:09:02 03/18/2024 11:24:58 Type 2 diabetes mellitus without complication 917598944 E11.9 LabsNow on Jardiance OV 03/24/2023La bsShe is now on Metformin which was prescribed by her cardiologi st See the 02/03/2023 message OV 08/19/2022 Continue Diet control for now and weight lossMetfor min was previously discussed and she declinedLa bs Screening mammography 24 910052 Z12.31 Electronic cigarette user 131632636 Z72.89 Discourage d Nicotine dependence 5629 4008 Z87.891 Discussed, she should stop smoking.Radha vargas has Chantix Administra tion of pneumococcal vaccine 26558648 Z23 Postmenopausal state 764 24367 Z78.0 General ex amination of patient 675780244 Z00.01 Body mass index 30+ - obesity 122310358 Z68.35 Obesity 367089057 E66.8 [id number] MD Judy [facility] (Adult Med) [address] [place] [address] [phone] 0 12/24/2024 14:25:28 12/25/2024 15:40:33 Adult health examination 937098786 Z00.00 [id number] MD Judy [facility] (Adult Med) [address] [place] [address] 06960-689 0 07/09/2025 12:47:38 07/10/2025 12:14:21 Type 2 diabetes mellitus without complication 191055667 E11.[address] overdueOn Jardiance 10 mg po daily from her cardiologi Continue Atorvastat in 10 mg OV 12/24/2024La bsNow on Jardiance OV 03/24/2023La bsShe is now on Metformin which was prescribed by her cardiologi st See the 02/03/2023 message OV 08/19/2022 Continue Diet control for now and weight lossMetfor min was previously discussed and she declinedLa bs Influenza vaccination declined 724022970 Z28.21 22667551 History of nicotine dependence 2488340795 72089472 Z87.264 [id number] Discussed, she should stop smoking.LD CT, shared decision making was done Screening for malignant neoplasm of cervix 465452427 Z12.4 279560 Therapeuti c drug monitoring assay 47229700 Z51.81 533833 Screening mammography 24 942327 Z12.31 8232109 Primary go narthrosis, bilateral 820910393 M17.0 0838667 Screening for malignant neoplasm of colon 798536475 Z12.11 402583 Benign ess ential hypertension 2040805 I10 3379 On Lisinopril 20/HCTZ 25 mg from her cardiologi st Health Concerns Section Related Observation LastModified by Organization Detai ls LastModified Time None Recorded Concern Status LastModified by Organization Details LastModified Time None Recorded Advance Directives Directive N: Payers Insurance Date Sequence Insurance Name Policy Number Policy Miller Covered Member ID Miller Member ID Guarantor Name 07/09/2025 1 [facility] (MEDICAID HMO) [id number] Gretchen Wilsons [id number] Gretchen Wilsons 07/09/2025 1 [place] Gretchen Wilsons [id number] Gretchen Wilsons 07/09/2025 1 [place] OR [place]IC[place] REPLACEMENT PRIMARY) Gretchen Wilsons [id number] Gretchen Meridaaggs 07/09/2025 1 [facility] (MEDICARE REPLACEMENT/A DVANTAGE - HMO) [id number] Gretchen Wilsons [id number] Gretchen Wilsons 07/09/2025 3 [place] [facility] Gretchen Wilsons [id number] Gretchen Wilsons 07/09/2025 2 [place] [facility] Gretchen Wilsons [id number] Gretchen Wilsons 07/09/2025 1 [place] Gretchen Wilsons [id number] Gretchen Wilsons 07/09/2025 2 [place] REPLACEMENT PRIMARY) Gretchen Wilsons [id number] Gretchen Wilsons Notes Date Note Type Note Provider Name and Address Organization Details Recorded Time 09/06/2022 text/html ROS as noted in the HPI Because I missed my appointment back in in my knees Ms Flowers returns, she is doing well and in the interim, she had tests ordered by her abrasive mixer. She plans to have a TKR done by Dr Dajuan Hayward. Toan Durbin MD Attn: Accounting, [place], [address], [facility] 09/06/2022 13:35:46 03/24/2023 text/html ROS as noted in the HPI Check up that I missed last time Toan Durbin MD Attn: Accounting, [address], [place], [address], [place] [facility] 03/24/2023 09:37:16 03/13/2024 text/html Diabetes F/URepo rted by PatientHPIFor associated symptoms, patient reportsweight gain (8 lbs)but reportsno weight loss,no dizziness,no sweats,no headaches,no confusion,no increased thirst,no increased appetite,no increased urination,no blurred vision,no numbness of feet, andno calluses on feet. For review finger sticks, patient reportsfasting: in the middle. For context, patient reportsnormal range of home blood sugars (in the low 100s),seeing eye doctor regularly,checking feet regularly,not missing doses of medications, andno side effects from medications. Medicare Annual Wellness VisitReported by PatientSocial/Behavior al HistoryFor physical activity, patient reportsdoes not exercise on a regular basisbut reportsgood physical condition. For diet and nutrition, patient reportshealthy diet. For fracture risk, patient reportsno history of fractures,no recent explained fracture,no sudden unexplained fractures, andno previous musculoskeletal injuries.Mental Status:For depression risk, patient reportsnever feels sad, empty, or tearful,no loss of interest in activities,no significant changes in weight,no sleep disturbances or insomnia,no agitation,no loss of energy,no feelings of worthlessness or guilt,no thoughts of suicide,no history of depression, andno history of mood disorders. For orientation, patient reportsno disorientation to time,no disorientation to date, andno disorientation to place. For concentration and memory, patient reportsno decreased concentrating ability,no memory lapses or loss, anddoes not forget words. For speech/motor difficulties, patient reportsno speech difficulties,no difficulty expressing formulated concepts,no difficulty with fine manipulative tasks,no difficulty writing/copying,no slowed reaction time, anddoes not knock things over when trying to pick them up.Functional AbilityFor vision, patient reportsworse with distanceandworse both distance and near. For hearing, patient reportsno loss of hearing. For activities of daily living, patient reportsable to bathe with limited or no assistance,able to contol urination and bowels,able to dress with limited or no assistance,able to feed self with limited or no assistance,able to get out of chair or bed with limited or no assistance,able to groom with limited or no assistance, andable to toilet with limited or no assistance. For instrumental activities of daily living, patient reportsable to do house work with limited or no assistance,able to grocery shop with limited or no assistance,able to manage medications with limited or no assistance,able to manage money with limited or no assistance,able to prepare meals with limited or no assistance, andable to use the phone with limited or no assistance. For falls risk assessment, patient reportsno frequent falls while walking,no fall in the past year,no fall since last visit, andno dizziness/vertigo. For home safety, patient reportsno unsafe norris hazzards,no unsafe stairs,no unsafe gas appliances,working smoke/co detectors,wears protective head gear for biking/high velocity,use of seatbelts,no vision or hearing loss while driving,no fire arms,has hand bars in the bathroom/shower, andgood lighting in the home.ROS as noted in the HPI I have a lot of stuff going on with him, he just got diagnosed with CHFI have one at home, I got to send to my home nurse that comes Ms Flowers has been busy with her who has some medical challenges, in the interim, she was seen by her abrasive mixer, Dr Mccray who stopped her Metformin and started her on Jardiance. Toan Durbin MD Attn: Accounting,[address] [place], [address], [facility] 03/13/2024 13:58:31 12/24/2024 text/html ROS as noted in the HPI A regular check upI also need another female Ob Ms Flowers complains of itching in her ears, other than that, she is doing well. Toan Durbin MD Attn: Accounting,[address] [place], [address], [facility] 12/24/2024 18:58:24 07/09/2025 text/html Hypertension F/UReported by PatientHPIFor associated symptoms, patient reportsno dizziness,no lightheadedness,no chest pain,no shortness of breath,no palpitations,no edema, andno calf pain with exertion. For lifestyle, patient reportsregular exerciseandlimiting/av oiding salt. For medications, patient reportstaking medications as directedandno side effects from medication. Diabetes F/UReported by PatientHPIFor associated symptoms, patient reportsweight loss (6 lbs)but reportsno weight gain,no dizziness,no sweats,no headaches,no confusion,no increased thirst,no increased appetite,no increased urination,no blurred vision,no numbness of feet, andno calluses on feet. For labs, patient reportslast a1c result: 6.8%. For context, patient reportsnormal range of home blood sugars (in the low 100s),seeing eye doctor regularly, andchecking feet regularly.ROS as noted in the HPI I need them refilledJust my knees Ms Flowers complains of chronic knee pain, she had seen Dr Mirta Hayward in the past and the plan was knee replacement. Toan Durbin MD Attn: Accounting,[address] [facility], [place], [address], [facility] 07/09/2025 13:53:41 OBGyn Episode No OBEpisode recorded.
== END 2025-07-31 14:58 | disposition home or self-care (01) ==
PROVIDERS: PCP Internal Medicine Infectious Disease; Visit Provider Internal Medicine Infectious Disease
DX: Z12.2 Encounter for screening for malignant neoplasm of respiratory organs (principal); Z87.891 Personal history of nicotine dependence
CPT/HCPCS: 71271